=== PATIENT | male | born 1950 | race African-American/Black ===

== ENCOUNTER → 2017-06-19 | Outpatient (CLI) | payer MEDICARE, OTHER ==
[~2017-06-19] MED LIST: ADVIL PO; AMLO-147 PO; HYDR-762 PO
--- NOTE | 2017-06-19 08:49 | RADRPT ---
PROCEDURE: XR Chest. CLINICAL INDICATION: Cough, bronchitis TECHNIQUE: PA and lateral chest x-ray. COMPARISON: 04/18/2016 chest radiograph. FINDINGS: Small infiltrate seen dorsally on the lateral projection but not clearly visualized on the anterior view. No pleural effusion or pneumothorax. The cardiomediastinal silhouette is unremarkable. Mild degenerative changes of the thoracic spine. Vascular calcifications of the aorta are present compatible with atherosclerosis. IMPRESSION: No evidence of acute air space infiltrates. Small infiltrate seen dorsally on the lateral projection but not clearly visualized on the anterior view. RPTAT: AADD .Barak Kuhn MD, MD Date Time Electronically viewed and signed by .Barak Kuhn MD, MD on 06/19/2017 08:48 .B/
--- NOTE | 2017-06-21 00:12 | RADRPT ---
Vent Rate: 71 bpm RR Interval: 0 msec IA Interval: 180 msec QRS Duration: 94 msec QT Interval: 398 msec QTC Interval: 432 msec P-R-T [place]: 44 - -13 - 23 degrees Normal sinus rhythm Normal ECG Electronically Signed By: Tyler Harman [id number]
== END | disposition home or self-care (01) ==
LOC: RAD 08:06
PROVIDERS: ATTEND Internal Medicine
DX: J40 Bronchitis, not specified as acute or chronic (principal); R05 Cough
CPT/HCPCS: 71020; 93005

== ENCOUNTER 2017-06-22 08:05 | Day surgery (SDC) | payer MEDICARE, OTHER ==
[2017-06-21 15:11] VITALS: BMI 26.1
--- NOTE | 2017-06-21 16:25 | HP ---
DATE OF ADMISSION: 06/22/2017 HISTORY OF PRESENT ILLNESS: The patient is a 67-year-old gentleman who is being admitted for elective surgery per Dr. Churchill for removal of hardware from the right foot. The patient is a non-diabetic with history of hypertension who had a bunion procedure with placement of hardware, right foot, and patient is being admitted for removal of same. REVIEW OF SYSTEMS: HEAD: No history of headache, focal weakness, or numbness. EYES: No blurry vision or glaucoma. ENT: No sinusitis, tonsillitis, or hearing loss. NECK: No history of thyroid disease. CHEST: No bronchitis, hay fever, or asthma. HEART: Prior history of hyperlipidemia. No history of chest pain, palpitations, or shortness of breath. GASTROINTESTINAL: No constipation, diarrhea, change of bowel habits. Colonoscopy was done one year ago. GENITOURINARY: No dysuria, hematuria, kidney stones. GENERAL: No history of weight loss. Has gained a few pounds recently. Sleep normal. No history of obstructive sleep apnea. MEDICATIONS: Amlodipine 5 mg p.o. daily. ALLERGIES: NO KNOWN ALLERGIES. FAMILY HISTORY: The patient's father at age 98. Mother is [id number], no history of diabetes or hypertension, colon or breast cancer in the family. PHYSICAL EXAMINATION: GENERAL APPEARANCE: The patient is a very pleasant gentleman who is presently in no acute distress. VITAL SIGNS: Weight 194 pounds. Blood pressure 130/90, respiratory 20 per minute. HEENT: Head normocephalic. No pallor, cyanosis, or icterus. Tongue is moist. NECK: Supple. No thyromegaly, bruits, lymphadenopathy. CHEST: Clinically clear. HEART: S1, S2. No definite gallops. ABDOMEN: Soft, nontender. No hepatosplenomegaly. EXTREMITIES: No edema. Pedal pulsations 2 plus bilaterally. Homans sign is negative. NEUROLOGIC: No localizing or lateralizing signs. IMPRESSION: 1. Status post bunion procedure, right foot, with hardware for removal. 2. Hypertension. The patient's overall medical condition is stable. His labs were reviewed. BUN 10, creatinine 0.7, sodium 141, potassium 3.4, INR 1.1. Chest x-ray shows a small infiltrate in the lateral projection, not seen on the anterior view (clinically no evidence of pneumonia). EKG shows normal sinus rhythm with no acute changes. The patient's medical condition is stable for the proposed surgery per Dr. Churchill. Dictated By: Lion Schwartz MD /[email or web address]/tanya /Document#: [id number]
[~2017-06-22] VITALS: Ht 180.3 cm; Wt 90.3 kg
[2017-06-22] VITALS (13 sets, daily range): BP systolic 96–143; BP diastolic 69–87; PULSE 64–71; RESP 10–26; Ht 180.3 cm; Wt 90.3 kg
[~2017-06-22 08:05] MED LIST changes: -AMLO-147 PO
[2017-06-22] MEDS ORDERED: POLYMYXIN/BACITRACIN 1L IRRIG ONE (08:30)
[2017-06-22] MEDS ORDERED: BUPIVACAINE 0.5% (SDV) 30 ML INJ ONE (08:30)
[2017-06-22] MEDS ORDERED: BUPIVACAINE 0.25% (MPF) 30 ML INJ ONE (08:30)
[2017-06-22] MEDS ORDERED: AMLO-147 PO (08:34)
[2017-06-22] MEDS ORDERED: KETOROLAC 30 MG INJ ONE (08:51)
[2017-06-22] MEDS ORDERED: DEXAMETHASONE 4 MG/ML 1 ML INJ ONE (08:51)
[2017-06-22] MEDS ORDERED: FENTAnyl 50 MCG/ML VIAL ONE (08:51)
[2017-06-22] MEDS ORDERED: ONDANSETRON 4 MG INJ ONE (08:51)
[2017-06-22] MEDS ORDERED: PROPOFOL 20 ML ONE (08:51)
[2017-06-22] MEDS ORDERED: MIDAZOLAM 1 MG/ML 2 ML INJ ONE (08:51)
[2017-06-22] MEDS ORDERED: CEFAZOLIN 1 GM INJ ONE (08:53)
--- NOTE | 2017-06-22 08:54 | HPN ---
Date/Time of Note Date/Time of Note DATE: 06/22/17 TIME: 08:54 Interval H&P Admission Note Pt. seen H&P reviewed: No system changes CHRISTY LARSON Jun 22, 2017 08:54
[2017-06-22] MEDS ORDERED: ONDANSETRON 4 MG INJ IV PRN (09:00)
[2017-06-22] MEDS ORDERED: FENTAnyl 50 MCG/ML VIAL IV PRN ×2 (09:00)
[2017-06-22] MEDS ORDERED: HYDROmorphONE (0.2 MG/ML) 10ML SYG IV PRN ×2 (09:00)
--- NOTE | 2017-06-22 11:54 | OPR ---
DATE OF OPERATION: 06/22/2017 PREOPERATIVE DIAGNOSIS: Painful screw, left foot. POSTOPERATIVE DIAGNOSIS: Painful screw, left foot. OPERATION PERFORMED: Removal of screw from left foot. SURGEON: Gabriel Churchill DPM ANESTHESIA: General. DESCRIPTION OF PROCEDURE: The patient was brought to the OR table and placed on the table in a secure supine position. After general anesthesia was achieved, the foot was draped and prepped in the usual sterile manner. An Esmarch bandage was used to exsanguinate the blood. The ankle tourniquet was then inflated to 250 mmHg. Attention was directed to the dorsal medial aspect of the left foot where the screw was felt to be very prominent. A small dorsal linear incision was made right over the palpable screw, and the screw was removed and sent for pathology. The skin edges were reapproximated using 4-0 nylon. Gauze, Kerlix and Coban were used for dressing. Upon deflation of tourniquet, immediate hyperemia was noted to digits 1 through 5 of the left foot. The patient left the OR with vital signs stable. Dictated By: Gabriel Churchill DPM /[email or web address]/[email or web address] /Document#: [id number]
== END 2017-06-22 11:20 | disposition home or self-care (01) ==
LOC: SDS 08:05
PROVIDERS: ATTEND Podiatrist
DX: Z45.89 Encounter for adjustment and management of other implanted devices (principal); I10 Essential (primary) hypertension
CPT/HCPCS: 20680; 88300; J0690; J1100; J1170; J1885; J2250; J2405; J3010; L3260